=== PATIENT | female | born 1995 | race African-American/Black ===

== ENCOUNTER 2017-03-23 10:19 | Emergency (ER) | payer BC ==
[~2017-03-23] VITALS: Ht 170.2 cm; Wt 82.6 kg
[2017-03-23] MEDS ORDERED: TRINESSA1 EAC1 PO (10:30)
[2017-03-23 10:45] VITALS: BP 130/80
[2017-03-23] MEDS ORDERED: ZITHROMAX250 MG ORAL (10:52)
[2017-03-23] MEDS ORDERED: IBUPROFEN600 MG ORAL (10:52)
[2017-03-23 11:06] VITALS: BP 130/80
--- NOTE | 2017-03-23 11:17 | Emergency Room Report ---
History of Present Illness General Chief Complaint: Sore Throat Source: Patient Present Illness HPI 22-year-old female no significant past medical history presents with sore throat for one week. States that she sees white spots on it. Difficulty swallowing. However she still able to eat and drink. Some subjective fevers. No change in voice Allergies: Coded Allergies: MINOCYCLINE (Verified Allergy, Unknown, 03/23/17) PENICILLINS (Verified Allergy, Unknown, 03/23/17) Patient History Past Medical History: see triage record Past Surgical History: none Pertinent Family History: none Last Menstrual Period: 03/05/17 Now: No Reviewed Nursing Documentation: PMH: Agreed, PSxH: Agreed Review of Systems All Other Systems: negative except mentioned in HPI Physical Exam Vital Signs Date Time Temp Pulse Resp B/P (MAP) Pulse Ox O2 Delivery O2 Flow Rate FiO2 03/23/17 10:25 99.1 103 17 130/80 100 Room Air Medical Decision Making Diagnostic Impression: Primary Impression: Bacterial pharyngitis ER Course 22-year-old female with sore throat DDX: Viral vs. infectious mononucleosis vs. bacterial pharyngitis vs. allergies Other serious causes such as SOLE BLACKER / RPA / deep space neck infection unlikely given physical exam Plan: Discharge her with antibiotics ER course: Patient remains stable in ED. tolerating by mouth Disposition: Patient will be discharged to home. Discharge with azithromycin as patient is allergic to penicillin Patient will follow up with primary care doctor within 5 days. Strict return precautions discussed with patient such as worsening throat pain/swelling, dysphagia, high fever or chills, shortness of breath, abdominal pain, which may indicate severe illness. Patient verbalized understanding and agreed with plan. Please note that this Emergency Department Report was dictated using [employer] helper technology software, occasionally this can lead to erroneous entry secondary to interpretation by the dictation equipment. Last Vital Signs Date Time Temp Pulse Resp B/P (MAP) Pulse Ox O2 Delivery O2 Flow Rate FiO2 03/23/17 11:06 99.1 17 130/80 100 Room Air 03/23/17 10:25 103 Disposition: HOME, SELF-CARE Condition: Stable Scripts Azithromycin* (ZITHROMAX*) 250 Mg Tablet 500 MG ORAL DAILY for 5 Days, #10 TAB Prov: Retino,Clairose M.DChrystal 03/23/17 Ibuprofen* (MOTRIN*) 600 Mg Tablet 600 MG ORAL Q8H Y for For Pain, #30 TAB 0 Refills Prov: Christian Argueta M.D. 03/23/17 Referrals: NOT CHOSEN IPA/,REFERRING (PCP) Patient Instructions: Tonsillitis Christian Argueta M.D. Mar 23, 2017 11:17
== END 2017-03-23 11:07 | disposition home or self-care (01) ==
LOC: EMR 10:57
DX: J02.9 Acute pharyngitis, unspecified (principal); Z88.0 Allergy status to penicillin; Z88.1 Allergy status to other antibiotic agents
CPT/HCPCS: 99283